=== PATIENT | male | born 1995 | race Two or more races ===

== ENCOUNTER 2023-09-09 21:47 | Emergency (ER) | payer OTHER ==
[~2023-09-09] VITALS: Ht 170.2 cm; Wt 105.7 kg
[2023-09-09] MEDS ORDERED: PENICILLIN G BENZATHINE 1.2 MMU/2 ML DISP.SYRIN IM ONE (22:06)
[2023-09-09] MEDS: PENICILLIN G BENZATHINE 2.4 MMU/4 ML DISP.SYRIN IM ONE (22:10)
[2023-09-09 22:16] VITALS: BP 140/82; O2SAT 99
== END 2023-09-09 22:27 | disposition home or self-care (01) ==
LOC: ER 21:51
DX: S01.511A Laceration without foreign body of lip, initial encounter (principal); W18.39XA Other fall on same level, initial encounter; Y93.89 Activity, other specified; Y92.89 Other specified places as the place of occurrence of the external cause; Y99.8 Other external cause status
CPT/HCPCS: 99283; 96372; J0561; A4606; A4663

== ENCOUNTER 2024-05-31 21:10 | Emergency (ER) | payer OTHER ==
[~2024-05-31] VITALS: Ht 170.2 cm; Wt 111.1 kg
[2024-06-01] MEDS ORDERED: FLUT16SP16 BNOSTRILS (01:34)
[2024-06-01 01:43] VITALS: BP 138/74; O2SAT 99
== END 2024-06-01 01:40 | disposition home or self-care (01) ==
LOC: ER 21:37
DX: R04.0 Epistaxis (principal); Z88.7 Allergy status to serum and vaccine
CPT/HCPCS: 70450; 70486; 72125; A4606; A4663